=== PATIENT | female | born 1975 | race Caucasian/White ===

== ENCOUNTER 2016-12-17 17:41 | Emergency (ER) | payer OTHER ==
[2017-01-25] MEDS ORDERED: LYRICA 150MG C150 MG PO (08:37)
[2017-01-26] MEDS ORDERED: COLACE100 MG PO (08:37)
[2017-01-26] MEDS ORDERED: LACTINEX1 EACH PO (08:38)
[2017-01-26] MEDS ORDERED: SINEQUAN50 MG PO (08:38)
[2017-01-26] MEDS ORDERED: SEROQUEL100 MG PO (08:38)
[2017-01-26] MEDS ORDERED: FENOFIBRATE134 MG PO (08:38)
[2017-01-26] MEDS ORDERED: LINZESS290 MCG PO (08:39)
[2017-01-26] MEDS ORDERED: OMEPRAZOLE40 MG PO (08:39)
[2017-01-26] MEDS ORDERED: AMITIZA24 MCG PO (08:40)
[2017-01-26] MEDS ORDERED: PRISTIQ100 MG PO (08:40)
[2017-01-26] MEDS ORDERED: MAGNESIUM OXID250 MG PO (08:40)
[2017-01-26] MEDS ORDERED: MICROZIDE12.5 MG PO (08:41)
[2017-01-26] MEDS ORDERED: VITAMIN D2400 UNIT PO (08:41)
[2017-01-26] MEDS ORDERED: LISINOPRIL-HCT1 EAC1 PO (08:41)
[2017-01-26] MEDS ORDERED: ZANAFLEX4 MG PO (08:42)
[2017-01-26] MEDS ORDERED: METFORMIN HCL1000 MG PO (08:42)
[2017-01-26] MEDS ORDERED: VITAMIN B-12500 MCG PO (08:43)
[2017-01-26] MEDS ORDERED: COENZYME Q10100 MG PO (08:43)
[2017-01-26] MEDS ORDERED: KETOROLAC TROME10 MG PO (08:43)
[2017-01-26] MEDS ORDERED: ZOFRAN4 MG PO (08:43)
[2017-01-26] MEDS ORDERED: EXCEDRIN MIGRA1 EACH PO (08:44)
[2017-01-26] MEDS ORDERED: LEVAQUIN500 MG PO (08:49)
== END 2016-12-17 18:31 | disposition home or self-care (01) ==
LOC: FER 17:41
DX: M79.1 Myalgia (principal); F17.210 Nicotine dependence, cigarettes, uncomplicated; Z88.0 Allergy status to penicillin; Z88.2 Allergy status to sulfonamides; Z88.5 Allergy status to narcotic agent; Z88.8 Allergy status to other drugs, medicaments and biological substances; Z88.6 Allergy status to analgesic agent; Z91.041 Radiographic dye allergy status
CPT/HCPCS: 99283